=== PATIENT | male | born 1955 | race Caucasian/White ===

== ENCOUNTER 2016-08-16 15:50 | Inpatient (IN) | payer BC ==
[~2016-08-16] VITALS: Ht 188 cm; Wt 98.4 kg
[~2016-08-16 15:50] MED LIST changes: -ASPEC81 PO; -SULI150T PO; -XRL15 PO; -ZCR40 PO
[2016-08-16] MEDS ORDERED: ZCR40 PO ×2 (16:59)
[2016-08-16] MEDS ORDERED: SULI150T PO ×2 (16:59)
[2016-08-16] MEDS ORDERED: ASPEC81 PO ×2 (17:44)
[2016-08-16] MEDS ORDERED: ACETAMINOPHEN 325 MG TAB PO PRN (17:45)
[2016-08-16] MEDS ORDERED: ONDANSETRON INJ 2 MG/ML 2 ML VIAL IV PRN (17:45)
[2016-08-16] MEDS ORDERED: HEPARIN 25000 UNIT/500 ML D5W ONE ×2 (17:59→18:04)
[2016-08-16] MEDS ORDERED: HEPARIN SOD 5000 UNIT/0.5 ML CARP ONE (17:59)
[2016-08-16 19:01] LABS: BASO % 0.4 %; BASO ABS # 0.02 K/uL (0-0.2); COMPLETE YES; EOS % 3.4 %; HEMATOCRIT 40.6 % (42-52); IG% 0.2 %; LYMPH % 21.5 %; MEAN CELL VOLUME 86.8 fL (80-100); MEAN CORPUSCULAR HEMOGLOBIN 29.9 pg (25-34); MEAN CORPUSCULAR HGB CONC 34.5 g/dl (32-36); MONO % 9.2 %; NEUT % 65.3 %; PLATELET COUNT 182 K/uL (130-400); RED BLOOD COUNT 4.68 M/uL (4.7-6.1); WHITE BLOOD COUNT 4.65 K/uL (4.8-10.8)
[2016-08-16 19:07] LABS: PROTHROMBIN TIME (PATIENT) 10.6 SECONDS (9.0-12.0)
[2016-08-16 19:17] LABS: ALB/GLOB RATIO 1.1 (0.9-2); BUN/CREATININE RATIO 16.1 (10-20); CALCIUM 9.2 mg/dl (8.5-10.1); CREATININE 1.1 mg/dl (0.60-1.40); POTASSIUM 4.4 mmol/L (3.5-5.1)
--- NOTE | 2016-08-16 19:52 | EMERGENCY ROOM VISIT NOTE ---
History Report prepared by Ariela: Demar Cook Under the Supervision of: Dr. Fausto Riley M.D. First contact with patient: 16:27 Chief Complaint: LEG PAIN,LEG INJURY Stated Complaint: DVT LEFT LEG- PHYSICIAN REFERRED History of Present Illness The patient is a 61 year old male who presents to the Emergency Room for a deep vein thrombosis in the left leg that was found shortly prior to arrival. The patient was sent to [facility] to have an ultra sound of the left leg. This leg showed a large thrombosis down the left leg. The patient states that he started to notice swelling in his left leg last night which has worsened into today. The patient has no personal or family history of DVTs or clotting disorders. He did make mention that he felt unusually short of breath while running 1.5 weeks ago. He is an avid runner and has run sense without this shortness. 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 He denies LOC, headache, fevers, chills, diaphoresis, visual changes, neck pain, chest pain, breathing difficulties, nausea, vomiting, abdominal pain, back pain, melena, hematochezia, urinary symptoms, numbness, weakness, lymphadenopathy, rash, or other complaints. 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 A total of ten systems were reviewed and were otherwise negative. Past Medical & Surgical Medical Problems: (1) DVT (deep venous thrombosis) (2) Hx of testicular cancer (3) Hyperlipidemia Family History Diabetes mellitus Heart disease Hypertension Social History Smoking Status: Never Smoker Alcohol Use: none Drug Use: none Marital Status: Occupation Status: employed Current/Historical Medications Scheduled Aspirin (Aspirin EC Low Dose), 81 MG PO DAILY Simvastatin (Simvastatin), 40 MG PO QPM Scheduled PRN Sulindac (Clinoril), 150 MG PO BID PRN for Pain Allergies Coded Allergies: Clindamycin (Verified Allergy, Unknown, VIOLENT DIARRHEA, 08/16/16) Azithromycin (Unverified Adverse Reaction, Unknown, PROLONGED PAUSES OF HEART, 08/16/16) Physical Exam Vital Signs Date Time Temp Pulse Resp B/P Pulse Ox O2 Delivery O2 Flow Rate FiO2 08/16/16 16:58 96 Room Air 08/16/16 16:04 36.7 67 18 140/93 96 Room Air Physical Exam GENERAL: Awake, alert, well-appearing, in no distress HENT: Normocephalic, atraumatic. Oropharynx unremarkable. EYES: Normal conjunctiva. Sclera non-icteric. NECK: Supple. No nuchal rigidity. FROM. No JVD. RESPIRATORY: Clear to auscultation. CARDIAC: Regular rate, normal rhythm. Extremities warm and well perfused. Pulses equal. ABDOMEN: Soft, non-distended. No tenderness to palpation. No rebound or guarding. No masses. RECTAL: Deferred. MUSCULOSKELETAL: Chest examination reveals no tenderness. The back is symmetrical on inspection without obvious abnormality. There is no CVA tenderness to palpation. No joint edema. LOWER EXTREMITIES: Calves are equal size bilaterally and non-tender.Left leg is obviously larger than the right. No discoloration. NEURO: Normal sensorium. No sensory or motor deficits noted. SKIN: No rash or jaundice noted. Medical Decision & Procedures Laboratory Results Laboratory results reviewed by me Medications Administered Medications (Trade) Dose Ordered Sig/Mayank Route Start Time Stop Time Status Last Admin Dose Admin Heparin Sodium/ Dextrose 1 ea NOW STAT N/A 08/16/16 16:36 08/16/16 16:38 DC 08/16/16 18:03 1 EA ED Course 1633: The patient was evaluated in room C4. A complete history and physical exam was performed. 1636: Ordered Dextrose 1 tablet PO. 1647: I discussed the case with Dr. Ravi Rodas Hospitalist., he will evaluate the patient for further treatment. Medical Decision Prior records reviewed and summarized above. Triage Nursing notes reviewed and agree them. Additional history obtained from the family. The patient's history was concerning for swelling and pain in the leg. Differential diagnosis: Etiologies such as DVT, joint effusion, infection, trauma, muscular, lymphedema , idiopathic, CHF, as well as others were entertained.. Physical examination: The physical examination revealed no signs of infection. Neurovascularly intact. ER treatment provided: IV heparin On reassessment the patient felt better. Diagnostics interpreted by me: The labs revealed unremarkable cc and chemistry panel hypercoagulability or hers sent. Imaging studies: Ultrasound report from the outpatient side revealed an extensive left leg DVT. Consultation: A consultation was placed with the hospitalist. The case was discussed and diagnostics were reviewed. The patient was evaluated in the ER for further treatment. The chart was completed utilizing [employer] Speech voice recognition software. Grammatical errors, random word insertions, pronoun errors, and incomplete sentences are an occasional consequence of this system due to software limitations, ambient noise, and hardware issues. Any formal questions or concerns about the content, text, or information contained within the body of this dictation should be directly addressed to the physician for clarification. Consults Time Called: 1643 Consulting Physician: Dr. Ravi Rodas Hospitalist Returned Call: 1646 I discussed the case with Dr. Ravi Damon., he will evaluate the patient for further treatment. Impression Primary Impression: DVT (deep venous thrombosis) Scribe Attestation The scribe's documentation has been prepared under my direction and personally reviewed by me in its entirety. I confirm that the note above accurately reflects all work, treatment, procedures, and medical decision making performed by me. Departure Information Dispostion Being Evaluated By Hospitalist Referrals Mary Ruggiero M.D. (PCP) Patient Instructions My [facility] Problem Qualifiers Primary Impression: DVT (deep venous thrombosis) DVT location: lower extremity Laterality: left Chronicity: acute
[2016-08-16] MEDS: SIMVASTATIN 40 MG TAB PO SCH (19:55)
[2016-08-16 20:00] VITALS: BP 127/71; PULSE 68; TEMP 36.7; O2SAT 98; Ht 188 cm; Wt 98.4 kg
--- NOTE | 2016-08-16 20:32 | History and Physical ---
History & Physical Date & Time of Service: August 16, 2016 at 20:17 Chief Complaint: Left Leg Swelling Primary Care Physician: Mary Ruggiero M.D. History of Present Illness 61 year old male who presents to the ER with left leg swelling. Patient reports he noticed the swelling two days ago. He was seen by his PCP who ordered an US that showed an extensive DVT in the left leg. He was referred to the ER for further evaluation. Patient reports he is very active. He runs a few miles a few times per week. He denies any recent travel. No smoking history or family history of blood clots. Patient notes that about a week ago he had both of his knees injected with steroids. He was knelt on both of his knees that evening and then his left knee became very swollen. The next day he reports the swelling was severe that he was unable to bend his knee and was immobile most of the day. Swelling was improved by the following day and patient was actually able to run two days ago. He reports that during his run he noted his calf to have a right feeling. The lower leg swelling started the following day and has been getting worse. He describes his calf as feeling tight but denies any tenderness. No redness. Patient notes some mild shortness of breath while running last week however attributes it to the high amount of pollen. He denies any further shortness of breath or chest pain. Patient reports he otherwise has been feeling well. He denies abdominal pain, nausea, vomiting, or diarrhea. No lightheadedness, dizziness, syncope, unilateral weakness, numbness, tingling, or slurred speech. He denies fever and chills. No urinary symptoms. Outpatient US showed extensive acute left leg DVT with involvement of the distal common femoral, superficial femoral, popliteal veins. Vitals are stable. Hypercoagulable work up has been ordered. Heparin is ordered. Past Medical/Surgical History Medical Problems: (1) Angiolipoma Permanent Comment: s/o removal Status: Chronic (2) Dyslipidemia Status: Chronic (3) Hx of testicular cancer Status: Chronic (4) PFO (patent foramen ovale) Status: Chronic (5) PVC (premature ventricular contraction) Status: Chronic (6) Testicular cancer Status: Chronic Surgical Problems: (1) H/O arthroscopy of left knee Status: Chronic (2) H/O inguinal hernia repair Status: Chronic (3) History of orchiectomy, unilateral Status: Chronic (4) lymph node dissection Status: Chronic Family History negative for clotting disorders Social History Smoking Status: Never Smoker Alcohol Use: 2-3 drinks / day Marital Status: Housing status: lives with family Occupational Status: employed Immunizations History of Tetanus Vaccine?: Yes Tetanus Immunization Date: Jul 11, 2012 Allergies Coded Allergies: Clindamycin (Verified Allergy, Unknown, VIOLENT DIARRHEA, 08/16/16) Azithromycin (Unverified Adverse Reaction, Unknown, PROLONGED PAUSES OF HEART, 08/16/16) Home Medications Scheduled Aspirin (Aspirin EC Low Dose), 81 MG PO DAILY Simvastatin (Simvastatin), 40 MG PO QPM Scheduled PRN Sulindac (Clinoril), 150 MG PO BID PRN for Pain Review of Systems ROS per HPI, all other systems reviewed and negative Physical Exam Vital Signs Date Time Temp Pulse Resp B/P Pulse Ox O2 Delivery O2 Flow Rate FiO2 08/16/16 17:54 60 20 130/77 98 Room Air 08/16/16 16:58 96 Room Air 08/16/16 16:04 36.7 67 18 140/93 96 Room Air General Appearance: no apparent distress Head: normocephalic Eyes: normal inspection ENT: hearing grossly normal Neck: supple, no JVD Respiratory/Chest: lungs clear, normal breath sounds, no respiratory distress Cardiovascular: regular rate, rhythm, normal peripheral pulses, + pertinent finding (+3 edema LLE) Abdomen/GI: normal bowel sounds, non tender, soft Extremities/Musculoskelatal: no calf tenderness, + inflammation (+3 LLE) Neurologic/Psych: no motor/sensory deficits, alert, normal mood/affect, oriented x 3 Skin: normal color, warm/dry Diagnostics Laboratory Results Results Past 24 Hours Test 08/16/16 18:00 Range/Units White Blood Count 4.65 4.8-10.8 K/uL Red Blood Count 4.68 4.7-6.1 M/uL Hemoglobin 14.0 14.0-18.0 g/dL Hematocrit 40.6 42-52 % Mean Corpuscular Volume 86.8 80-100 fL Mean Corpuscular Hemoglobin 29.9 25-34 pg Mean Corpuscular Hemoglobin Concent 34.5 32-36 g/dl Platelet Count 182 130-400 K/uL Mean Platelet Volume 10.0 7.4-10.4 fL Neutrophils (%) (Auto) 65.3 % Lymphocytes (%) (Auto) 21.5 % Monocytes (%) (Auto) 9.2 % Eosinophils (%) (Auto) 3.4 % Basophils (%) (Auto) 0.4 % Neutrophils # (Auto) 3.03 1.4-6.5 K/uL Lymphocytes # (Auto) 1.00 1.2-3.4 K/uL Monocytes # (Auto) 0.43 0.11-0.59 K/uL Eosinophils # (Auto) 0.16 0-0.5 K/uL Basophils # (Auto) 0.02 0-0.2 K/uL RDW Standard Deviation 39.3 36.4-46.3 fL RDW Coefficient of Variation 12.3 11.5-14.5 % Immature Granulocyte % (Auto) 0.2 % Immature Granulocyte # (Auto) 0.01 0.00-0.02 K/uL Prothrombin Time 10.6 9.0-12.0 SECONDS Prothromb Time International Ratio 1.0 0.9-1.1 Activated Partial Thromboplast Time 25.3 21.0-31.0 SECONDS Partial Thromboplastin Ratio 1.0 Sodium Level 142 136-145 mmol/L Potassium Level 4.4 3.5-5.1 mmol/L Chloride Level 108 98-107 mmol/L Carbon Dioxide Level 27 21-32 mmol/L Anion Gap 7.0 3-11 mmol/L Blood Urea Nitrogen 18 7-18 mg/dl Creatinine 1.10 0.60-1.40 mg/dl Est Creatinine Clear Calc Drug Dose 82.0 ml/min Estimated GFR () 83.5 Estimated GFR (Non- 72.1 BUN/Creatinine Ratio 16.1 10-20 Random Glucose 87 70-99 mg/dl Calcium Level 9.2 8.5-10.1 mg/dl Total Bilirubin 0.4 0.2-1 mg/dl Aspartate Amino Transf (AST/SGOT) 22 15-37 U/L Alanine Aminotransferase (ALT/SGPT) 29 12-78 U/L Alkaline Phosphatase 110 45-117 U/L Total Protein 7.5 6.4-8.2 gm/dl Albumin 4.0 3.4-5.0 gm/dl Globulin 3.5 2.5-4.0 gm/dl Albumin/Globulin Ratio 1.1 0.9-2 Folate 10.14 >5.38 ng/mL Diagnostic Radiology LLE DOPPLER IMPRESSION: Extensive acute left leg DVT with involvement of the distal common femoral, superficial femoral, popliteal veins. Impression Assessment and Plan ACUTE LEFT LEG DVT - admit to med/surg - patient presenting with increasing LLE swelling x 2 days, outpatient US showed extensive DVT as noted above - likely unprovoked however patient does report one day of being immobile due to left knee swelling 5 days ago - denies recent travel, non smoker, no family history of clotting disorders - hemodynamically stable - no tachycardia or hypoxia - remote history of testicular cancer ~ 25 years ago s/p treatment, colonoscopy UTD (due next year) - hypercoagulable work up ordered - will start IV heparin with transition to NOAC vs. Coumadin - case management consult placed for NOAC coverage - patient with history of possible PFO noted on echo from 2011 - consider repeat echo or REGINA to further evaluate as this would put patient as his risk of stroke HLD - continue statin DVT PROPHYLAXIS - on Heparin gtt DISPO - In my clinical judgment this beneficiary meets acute admission criteria, established by [facility], that includes being hospitalized through two midnights. Attending Addendum: The patient was seen and examined Swelling and discomfort in the left leg since day before admission Has been working desk longer than usual recently No other provocative factor O/E Hemodynamically stable Left leg is swollen from the knee below Increase in warmth and mildly tender Labs and imaging studies were reviewed Has had a long discussion with the patient regarding the management Agree with the assessment and plan. Dr Angelo Rodrigues VTE Prophylaxis VTE Risk Assessment Done? Y/N: Yes Risk Level: High Given or contraindicated: Other Anticoagulation
[2016-08-16 23:34] VITALS: BP 101/63; PULSE 49; TEMP 36.7; O2SAT 96
[2016-08-17] VITALS: O2SAT 98
[2016-08-17 01:12] LABS: PARTIAL THROMBOPLASTIN RATIO 2.1
[2016-08-17 07:24] LABS: MEAN CELL VOLUME 88.1 fL (80-100); MEAN CORPUSCULAR HEMOGLOBIN 30.2 pg (25-34); MEAN CORPUSCULAR HGB CONC 34.3 g/dl (32-36); MEAN PLATELET VOLUME 9.8 fL (7.4-10.4); PLATELET COUNT 159 K/uL (130-400); RED BLOOD COUNT 4.54 M/uL (4.7-6.1); WHITE BLOOD COUNT 4.25 K/uL (4.8-10.8)
[2016-08-17 07:38] VITALS: BP 106/67; PULSE 53; TEMP 36.7; O2SAT 97
[2016-08-17 07:43] LABS: PARTIAL THROMBOPLASTIN RATIO 2.1
[2016-08-17] MEDS: HEPARIN 25,000 UNIT/500ML D5W 500 ML IV PRN ×3 (08:15→22:50)
--- NOTE | 2016-08-17 12:46 | Progress Note ---
Medicine Progress Note Date & Time of Visit: August 17, 2016 at 12:36. Subjective patient seen resting in bed, comfortable states he feels fine overall has minimal discomfort on the left lower leg- some numbness, tingling on the swollen region denies shortness of breath, palpitations, chest pain no weight loss, loss of appetite, weakness no changes with urination or bowel movement no other symptoms Objective Last 8 Hrs Date Time Temp Pulse Resp B/P Pulse Ox O2 Delivery O2 Flow Rate FiO2 08/17/16 08:00 Room Air 08/17/16 07:38 36.7 53 16 106/67 97 Room Air Physical Exam: General- oriented x 3, not in distress, speaks in sentences with no effort Head- atraumatic Eyes-EOMI, anicteric ENT- oropharynx clear Neck- supple, no JVD, no adenopathy, no thyromegaly no bruits appreciated Lungs- clear breath sounds bilaterally Heart- normal rate, regular rhythm; no murmurs Abdomen- normal bowel sounds, soft, nontender, no masses or hepatosplenomegaly Genital- penis essentially normal right testis: no swelling, masses noted no inguinal lymphadenopathy Extremities- left lower leg: mild edema and warmth, no erythema right lower leg: essentially normal Neuro- alert, oriented x 3; no gross focal deficits Skin- warm & dry Laboratory Results: Last 24 Hours Test 08/16/16 18:00 08/17/16 00:30 08/17/16 07:02 White Blood Count 4.65 K/uL 4.25 K/uL Red Blood Count 4.68 M/uL 4.54 M/uL Hemoglobin 14.0 g/dL 13.7 g/dL Hematocrit 40.6 % 40.0 % Mean Corpuscular Volume 86.8 fL 88.1 fL Mean Corpuscular Hemoglobin 29.9 pg 30.2 pg Mean Corpuscular Hemoglobin Concent 34.5 g/dl 34.3 g/dl Platelet Count 182 K/uL 159 K/uL Mean Platelet Volume 10.0 fL 9.8 fL Neutrophils (%) (Auto) 65.3 % Lymphocytes (%) (Auto) 21.5 % Monocytes (%) (Auto) 9.2 % Eosinophils (%) (Auto) 3.4 % Basophils (%) (Auto) 0.4 % Neutrophils # (Auto) 3.03 K/uL Lymphocytes # (Auto) 1.00 K/uL Monocytes # (Auto) 0.43 K/uL Eosinophils # (Auto) 0.16 K/uL Basophils # (Auto) 0.02 K/uL RDW Standard Deviation 39.3 fL 40.3 fL RDW Coefficient of Variation 12.3 % 12.5 % Immature Granulocyte % (Auto) 0.2 % Immature Granulocyte # (Auto) 0.01 K/uL Prothrombin Time 10.6 SECONDS Prothromb Time International Ratio 1.0 Activated Partial Thromboplast Time 25.3 SECONDS 54.4 SECONDS 54.1 SECONDS Partial Thromboplastin Ratio 1.0 2.1 2.1 Sodium Level 142 mmol/L Potassium Level 4.4 mmol/L Chloride Level 108 mmol/L Carbon Dioxide Level 27 mmol/L Anion Gap 7.0 mmol/L Blood Urea Nitrogen 18 mg/dl Creatinine 1.10 mg/dl Est Creatinine Clear Calc Drug Dose 82.0 ml/min Estimated GFR () 83.5 Estimated GFR (Non- 72.1 BUN/Creatinine Ratio 16.1 Random Glucose 87 mg/dl Calcium Level 9.2 mg/dl Total Bilirubin 0.4 mg/dl Aspartate Amino Transf (AST/SGOT) 22 U/L Alanine Aminotransferase (ALT/SGPT) 29 U/L Alkaline Phosphatase 110 U/L Total Protein 7.5 gm/dl Albumin 4.0 gm/dl Globulin 3.5 gm/dl Albumin/Globulin Ratio 1.1 Folate 10.14 ng/mL Assessment & Plan ACUTE LEFT LEG DVT - no recent surgeries, immobility, travels, family history of VTEs did have bilateral knee injection a week ago, but was not sedentary after does have history of testicular cancer s/p orchiectomy - hypercoagulable work up ordered and pending - hemodynamically stable started on heparin IV, continue heparin for now - given history of testicular CA, may need screening for underlying malignancy as treatment option for this is lovenox than oral anticoagulants will consult Hematology/Oncology HISTORY OF PFO seen on outpatient echo update echo while admitted on Aspirin KNEE ARTHRITIS will have to avoid NSAIDs when on anticoagulation HLD - continue statin DVT PROPHYLAXIS - on Heparin gtt DISPO pending anticipate d/c home when medically stable Current Inpatient Medications: Current Inpatient Medications Medications (Trade) Dose Ordered Sig/Mayank Route Start Time Stop Time Status Last Admin Dose Admin Acetaminophen (Tylenol Tab) 650 mg Q4H PRN PO 08/16/16 17:45 09/15/16 17:44 Ondansetron HCl (Zofran Inj) 4 mg Q6H PRN IV 08/16/16 17:45 09/15/16 17:44 Simvastatin 40 mg 40 mg QPM PO 08/16/16 21:00 09/15/16 20:59 08/16/16 19:55 40 MG Heparin Sodium/ Dextrose (Heparin 25,000 Unit/500ml D5W) 500 ml @ 32 mls/hr [id number] PRN IV 08/16/16 18:45 09/15/16 18:44 08/17/16 08:15 32 MLS/HR
[2016-08-17 15:38] VITALS: BP 112/71; PULSE 66; TEMP 36.6; O2SAT 91
--- NOTE | 2016-08-17 16:55 | ECHOCARDIOGRAM REPORT ---
*NOTICE TO RECEIVING [employer] This information is strictly Confidential and protected under [place] law. [place] law prohibits you from making any further disclosure of this information unless further disclosure is expressly permitted by the written consent of the person to whom it pertains or is authorized by law. A general authorization for the release of medical or other information is not sufficient for this purpose. Hospital accepts no responsibility if the information is made available to any other person, INCLUDING THE PATIENT. Interpretation Summary * Name: MATT LUONG Study Date: 08/17/2016 02:24 PM BP: 106/67 mmHg * Patient Location: [id number]\S\E418\S\1 HR: 53 * : 1955 (M/d/yyyy) Gender: Male Height: 74 in * Age: 61 yrs Ethnicity: CA Weight: 216 lb * Ordering Physician: Derek Snyder * Referring Physician: Mary Ruggiero * Performed By: Janee Mario RDCS * * Reason For Study: POSSIBLE PFO * BSA: 2.2 m2 * The study was technically adequate. * There is no comparison study available. * -- Conclusions -- * Ejection Fraction = 60-65%. * Pulse wave TDI of the anterior and posterior mitral annulas demonstrates normal LV relaxation * There is mild tricuspid regurgitation. * The atrial septum is aneurysmal. * Injection of contrast documented no interatrial shunt. Procedure Details * A complete two-dimensional transthoracic echocardiogram was performed (2D, M-mode, Doppler and color flow Doppler). Left Ventricle * The left ventricle is normal in size. * There is no thrombus. * There is normal left ventricular wall thickness. * Ejection Fraction = 60-65%. * Left ventricular systolic function is normal. * The left ventricular wall motion is normal. Right Ventricle * The right ventricle is normal size. * The right ventricular cavity size is normal (basal dimension <4.2 cm in right ventricular apical 4-chamber view). * The right ventricular systolic function is normal as assessed by tricuspid annular plane systolic excursion (TAPSE) (normal >1.5 cm). Atria * The left atrial size is normal. * Right atrial size is normal. * Injection of contrast documented no interatrial shunt. * The atrial septum is aneurysmal. Mitral Valve * The mitral valve is normal. * There is no mitral valve stenosis. * Significant mitral regurgitation is absent. Tricuspid Valve * The tricuspid valve is normal. * There is no tricuspid stenosis. * There is mild tricuspid regurgitation. Aortic Valve * The aortic valve is trileaflet. * Aortic stenosis is absent. * There is no significant aortic regurgitation. Pulmonic Valve * The pulmonary valve is not well seen, but the Doppler examination is normal without significant regurgitation or stenosis. Great Vessels * The aortic root and proximal ascending aorta are normal sized. Pericardium/Pleural * There is no pericardial effusion. Great Vessels * Normal inferior vena cava diameter and respiratory variation suggests normal central venous pressure. Left Ventricular Diastolic Function * Pulse wave TDI of the anterior and posterior mitral annulas demonstrates normal LV relaxation MMode 2D Measurements and Calculations IVSd 1.5 cm IVSs 2.2 cm LVIDd 4.6 cm LVIDs 3.1 cm LVPWd 1.5 cm LVPWs 1.9 cm IVS/LVPW 1.0 FS 32.4 % EDV(Teich) 94.9 ml ESV(Teich) 37.1 ml EF(Teich) 60.9 % EDV(cubed) 94.2 ml ESV(cubed) 29.0 ml EF(cubed) 69.2 % % IVS thick 43.9 % % LVPW thick 27.9 % LV mass(C)d 289.3 grams LV mass(C)dI 128.8 grams/m\S\2 LV mass(C)s 291.8 grams LV mass(C)sI 129.9 grams/m\S\2 SV(Teich) 57.7 ml SI(Teich) 25.7 ml/m\S\2 SV(cubed) 65.2 ml SI(cubed) 29.0 ml/m\S\2 Ao root diam 3.2 cm Ao root area 7.9 cm\S\2 LA dimension 4.1 cm LA/Ao 1.3 LVAd ap4 35.5 cm\S\2 LVLd ap4 9.7 cm EDV(MOD-sp4) 105.0 ml LVAs ap4 18.4 cm\S\2 LVLs ap4 7.7 cm ESV(MOD-sp4) 39.4 ml EF(MOD-sp4) 62.5 % LVAd ap2 27.7 cm\S\2 LVLd ap2 8.7 cm EDV(MOD-sp2) 80.9 ml LVAs ap2 16.0 cm\S\2 LVLs ap2 7.2 cm ESV(MOD-sp2) 34.7 ml EF(MOD-sp2) 57.1 % SV(MOD-sp4) 65.6 ml SI(MOD-sp4) 29.2 ml/m\S\2 SV(MOD-sp2) 46.2 ml SI(MOD-sp2) 20.6 ml/m\S\2 Doppler Measurements and Calculations MV E max sandra 56.3 cm/sec MV A max sandra 68.4 cm/sec MV E/A 0.82 MV dec time 0.31 sec Ao V2 max 137.7 cm/sec Ao max PG 7.6 mmHg Ao max PG (full) 3.7 mmHg LV V1 max PG 3.9 mmHg LV V1 max 99.0 cm/sec TR max sandra 224.0 cm/sec
[2016-08-17] MEDS: SIMVASTATIN 40 MG TAB PO SCH (20:59)
--- NOTE | 2016-08-17 21:53 | Medical Consult ---
Consultation Date of Consultation: August 17, 2016. 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 He saw his PCP for left leg swelling which he noticed for about 2 days and had a venous doppler which showed acute extensive DVT involving the distal common femoral superficial femoral and popliteal veins and was sent to ER for further management. He denies any recent travel. He denies any family history of thromboembolism or stroke. This is his first event. 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 He said he injured his knee about a week ago. He said he got steroid injections in the knees a week ago but then he had some work to do, so he knelt on his knees for hours and said when he got up the left knee was sore and swollen. He said the knee was severely swollen and was difficult to move and walk so he was immobile for close to 36hrs, only occasionally getting up to use bathroom but otherwise his had to be helped him with everything else and said he was in bed for that time. He said the swelling improved in his knee and he went running 3 days ago and then noticed the left leg was swollen but said he had no pain. He went to his PCP for evaluation and was diagnosed with acute LE DVT He feels well. He denies any fatigue or night sweats or fevers or chills or weight loss or cough or shortness of breath or chest pain or lightheadedness or abdominal pain or swollen glands or pain in testicle or diarrhea or constipation or any bleeding or bruising problems. 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, incomplete RBBB PFO PVCs PAST SURGICAL HISTORY: knee surgery, inguinal hernia repair, colonoscopy, left orchiectomy and LN dissection in 1988 Medical Problems: (1) Hx of testicular cancer Status: Chronic Family History Diabetes mellitus Heart disease Hypertension His father had bladder cancer He denies any family history of any blood disorders or thromboembolism or stroke Social History Smoking Status: Never Smoker Alcohol Use: 2-3 drinks / day Marital Status: Occupation Status: employed Allergies Coded Allergies: Clindamycin (Verified Allergy, Unknown, VIOLENT DIARRHEA, 08/16/16) Azithromycin (Unverified Adverse Reaction, Unknown, PROLONGED PAUSES OF HEART, 08/16/16) Current Inpatient Medications Current Inpatient Medications Medications (Trade) Dose Ordered Sig/Mayank Route Start Time Stop Time Status Last Admin Dose Admin Acetaminophen (Tylenol Tab) 650 mg Q4H PRN PO 08/16/16 17:45 09/15/16 17:44 Ondansetron HCl (Zofran Inj) 4 mg Q6H PRN IV 08/16/16 17:45 09/15/16 17:44 Simvastatin 40 mg 40 mg QPM PO 08/16/16 21:00 09/15/16 20:59 08/17/16 20:59 40 MG Heparin Sodium/ Dextrose (Heparin 25,000 Unit/500ml D5W) 500 ml @ 32 mls/hr [id number] PRN IV 08/16/16 18:45 09/15/16 18:44 08/17/16 09:20 32 MLS/HR Review of Systems Constitutional: No chills, No fatigue, No fever, No sweats, No weakness, No weight loss ENT: No sore throat, No unusual epistaxis Respiratory: No cough, No dyspnea at rest, No dyspnea on exertion, No shortness of breath, No sputum, No wheezing Cardiovascular: + edema (left leg), No chest pain, No palpitations Abdomen: No GI bleeding, No constipation, No diarrhea, No nausea, No pain, No vomiting Musculoskeletal: No joint pain, No muscle pain Genitourinary - Male: No dysuria, No hematuria, No urinary frequency Neurologic: No numbness/tingling, No vertigo, No weakness Psychiatric: No anxiety, No depression symptoms Endocrine: No fatigue Hematologic / Lymphatic: No abnormal bleeding/bruising, No night sweats, No swollen lymph nodes Integumentary: No rash Physical Exam Date Time Temp Pulse Resp B/P Pulse Ox O2 Delivery O2 Flow Rate FiO2 08/17/16 15:50 Room Air 08/17/16 15:38 36.6 66 18 112/71 91 Room Air 08/17/16 08:00 Room Air 08/17/16 07:38 36.7 53 16 106/67 97 Room Air 08/17/16 00:00 98 Room Air 08/16/16 23:34 36.7 49 18 101/63 96 Room Air General Appearance: WD/WN, no apparent distress Head: normocephalic, atraumatic Eyes: sclerae normal, + pertinent finding (No pallor) Neck: supple, no adenopathy, no JVD Respiratory/Chest: lungs clear, normal breath sounds, no respiratory distress Cardiovascular: regular rate, rhythm, no murmur Abdomen/GI: normal bowel sounds, non tender, soft, no organomegaly Back: no CVA tenderness Extremities/Musculoskelatal: no calf tenderness, non-tender, + pedal edema ( left leg) Neurologic/Psych: alert, normal mood/affect, oriented x 3 Skin: normal color, warm/dry, no rash Lymphatic: no adenopathy Laboratory Results Last 24 Hours Test 08/17/16 00:30 08/17/16 07:02 08/17/16 20:35 Activated Partial Thromboplast Time 54.4 SECONDS 54.1 SECONDS Partial Thromboplastin Ratio 2.1 2.1 White Blood Count 4.25 K/uL Red Blood Count 4.54 M/uL Hemoglobin 13.7 g/dL Hematocrit 40.0 % Mean Corpuscular Volume 88.1 fL Mean Corpuscular Hemoglobin 30.2 pg Mean Corpuscular Hemoglobin Concent 34.3 g/dl RDW Standard Deviation 40.3 fL RDW Coefficient of Variation 12.5 % Platelet Count 159 K/uL Mean Platelet Volume 9.8 fL Assessment & Plan 61 year old male with remote history of testicular non-seminoma s/p left orchiectomy and LN dissection after which he achieved complete remission and had approximately 20 year follow up per patient Given the remote history would doubt recurrence of his prior testicular cancer Check LDH, HCG Quant and LDH. He is not having any symptoms at this time except for the left lower extremity swelling from DVT Check CXR. Recommend age and gender appropriate screening with his primary care physician Acute left lower extremity DVT - appears may have been provoked as he reports that he injured his knee kneeling for hours after he had injection into the knee and that he was mostly immobile for close to 36hrs the next day. Also was sitting more recently with grading but was feeling well prior to him kneeling for hours working after his injection,. He is currently on heparin gtt. Recommend transition to oral anticoagulant. I discussed options with the patient. Heparin drip can be switched to lovenox and can overlap with coumadin per protocol for at least 5 days or until therapeutic maintaining INR 2 to 3. IBut he would need to follow up closely with the coumadin clinic and also dietary concerns on coumadin was discussed with him He said he knows 2 other people on coumadin so he is aware of that Alternative would be one of the newer oral anticoagulants such as xarelto or pradaxa or eliquis. He understands that there is no antidote if bleeding should occur on the newer oral anticoagulants, though recently an antidote was approved for pradaxa. He will consider the options and discuss with Dr Snyder. Discussed with Dr Snyder Hypercoagulable workup was done yesterday - results pending Follow up in the office upon discharge
[2016-08-17 23:44] VITALS: BP 106/69; PULSE 52; TEMP 36.6; O2SAT 94
[2016-08-18] MEDS: HEPARIN 25,000 UNIT/500ML D5W 500 ML IV PRN (06:53)
[2016-08-18 06:56] LABS: HEMATOCRIT 40.6 % (42-52); MEAN CELL VOLUME 87.7 fL (80-100); MEAN CORPUSCULAR HEMOGLOBIN 30.2 pg (25-34); MEAN CORPUSCULAR HGB CONC 34.5 g/dl (32-36); MEAN PLATELET VOLUME 9.9 fL (7.4-10.4); PLATELET COUNT 171 K/uL (130-400); RED BLOOD COUNT 4.63 M/uL (4.7-6.1); WHITE BLOOD COUNT 4.21 K/uL (4.8-10.8)
[2016-08-18 07:10] LABS: PARTIAL THROMBOPLASTIN RATIO 2.2
[2016-08-18 07:35] VITALS: BP 108/67; PULSE 55; TEMP 36.5; O2SAT 94
[2016-08-18 08:00] VITALS: O2SAT 94
--- NOTE | 2016-08-18 09:14 | Progress Note ---
Medicine Progress Note Date & Time of Visit: August 18, 2016 at 08:58. Subjective patient seen resting in bed, comfortable states he feels fine overall states left lower leg feels better, less swollen, no pain denies chest pain, dyspnea, palpitations, dizziness, focal neuro symptoms no bleeding no other symptoms states he is ready and would like to be discharged today Objective Last 8 Hrs Date Time Temp Pulse Resp B/P Pulse Ox O2 Delivery O2 Flow Rate FiO2 08/18/16 07:35 36.5 55 18 108/67 94 Room Air Physical Exam: General- oriented x 3, not in distress, speaks in sentences with no effort, no accessory muscle use Eyes-anicteric Neck- no JVD, no adenopathy Lungs- clear breath sounds bilaterally, no rales/wheezes Heart- normal rate, regular rhythm; no murmurs Abdomen- normal bowel sounds, soft, nontender Extremities- left lower leg: very mild edema, no warmth, no erythema right lower leg: essentially normal Neuro- alert, oriented x 3; no gross focal deficits Skin- warm & dry Laboratory Results: Last 24 Hours Test 08/17/16 21:50 08/18/16 06:20 Lactate Dehydrogenase 271 U/L White Blood Count 4.21 K/uL Red Blood Count 4.63 M/uL Hemoglobin 14.0 g/dL Hematocrit 40.6 % Mean Corpuscular Volume 87.7 fL Mean Corpuscular Hemoglobin 30.2 pg Mean Corpuscular Hemoglobin Concent 34.5 g/dl RDW Standard Deviation 40.2 fL RDW Coefficient of Variation 12.4 % Platelet Count 171 K/uL Mean Platelet Volume 9.9 fL Activated Partial Thromboplast Time 57.9 SECONDS Partial Thromboplastin Ratio 2.2 Assessment & Plan ACUTE LEFT LEG DVT - may have been provoked as symptoms started after a knee injection does have history of testicular cancer s/p orchiectomy, in remission - hypercoagulable work up ordered and pending, please follow up - evaluated by Hematology- Dr. Shankar LDH, HCG ordered will need age appropriate cancer screening as outpatient recommend coumadin or NOACs follow up with Dr. Shankar as outpatient for discussion re: duration of therapy - placed on heparin drip - remained hemodynamically stable leg swelling and pain improving - discussed options with patient at length and in detail, including risks and benefits of coumadin and NOACs patient prefers Xarelto - will discharge on Xarelto 15mg bid with food x 3 weeks, then 20mg daily with food after discussed importance of taking medications regularly and not missing doses, caution with activities to avoid injuries patient verbalized understanding and agreement HISTORY OF PFO repeat echo 08/17/16: -- Conclusions -- * Ejection Fraction = 60-65%. * Pulse wave TDI of the anterior and posterior mitral annulas demonstrates normal LV relaxation * There is mild tricuspid regurgitation. * The atrial septum is aneurysmal. * Injection of contrast documented no interatrial shunt. -- Aspirin held as patient will now be on Xarelto, may need to resume once off anticoagulation discussed report with patient consider Cardiology evaluation KNEE ARTHRITIS stop Sulindac for now advised to avoid NSAIDs when on anticoagulation HLD - continue statin DVT PROPHYLAXIS - placed on Heparin gtt DISPO d/c home today ff up with PCP in 1 week ff up with [employer] Dr. Shankar in 2 weeks Current Inpatient Medications: Current Inpatient Medications Medications (Trade) Dose Ordered Sig/Mayank Route Start Time Stop Time Status Last Admin Dose Admin Acetaminophen (Tylenol Tab) 650 mg Q4H PRN PO 08/16/16 17:45 09/15/16 17:44 Ondansetron HCl (Zofran Inj) 4 mg Q6H PRN IV 08/16/16 17:45 09/15/16 17:44 Simvastatin 40 mg 40 mg QPM PO 08/16/16 21:00 09/15/16 20:59 08/17/16 20:59 40 MG Heparin Sodium/ Dextrose (Heparin 25,000 Unit/500ml D5W) 500 ml @ 32 mls/hr [id number] PRN IV 08/16/16 18:45 09/15/16 18:44 08/18/16 06:53 32 MLS/HR
[2016-08-18] MEDS ORDERED: XRL15 PO ×2 (09:21)
--- NOTE | 2016-08-18 09:27 | Discharge Instructions ---
Discharge Instructions Date of Service August 18, 2016. Admission Reason for Admission: DVT Discharge Discharge Diagnosis / Problem: ACUTE DEEP VENOUS THROMBOSIS, LEFT LEG Discharge Goals Goal(s): Diagnostic testing, Therapeutic intervention Activity Recommendations Activity Limitations: as noted below (NO HEAVY EXERTION UNTIL RE-EVALUATED BY PRIMARY CARE PHYSICIAN) Lifting Limitations: until after follow-up appointment Exercise/Sports Limitations: until after follow-up appointment AVOID MANIPULATING THE LEFT LEG . Instructions / Follow-Up Instructions / Follow-Up PLEASE REVIEW YOUR NEW MEDICATION LIST AND FOLLOW INSTRUCTIONS CAREFULLY. YOU WILL TAKE XARELTO 15MG TWICE A DAY FOR 3 WEEKS, THEN 20MG DAILY. ALWAYS TALK TO YOUR PRIMARY CARE PHYSICIAN PRIOR TO STARTING ANY MEDICATION. CALL PRIMARY CARE PHYSICIAN OR RETURN TO ER IMMEDIATELY IF WITH ANY SIGNS OF BLEEDING, HEAD TRAUMA. FOLLOW UP WITH DR. EPSTEIN ON SUNDAY AUGUST 21, 2016 AT 9:25AM. FOLLOW UP WITH [employer] DR. AVNI PORTILLO IN 1-2 WEEKS. TEL NO. Current Hospital Diet Patient's current hospital diet: Regular Diet Discharge Diet Recommended Diet: Regular Diet Procedures Procedures Performed: LEFT LEG ULTRASOUND, ECHOCARDIOGRAM Pending Studies Studies pending at discharge: no Medical Emergencies . Who to Call and When: Medical Emergencies: If at any time you feel your situation is an emergency, please call 911 immediately. . Non-Emergent Contact Non-Emergency issues call your: Primary Care Provider Call Non-Emergent contact if: you have a fever, your pain is not controlled, your pain is worsening, you have any medication questions . Past History Medical & Surgical History: (1) Testicular cancer (2) PVC (premature ventricular contraction) (3) Dyslipidemia (4) Angiolipoma (5) History of orchiectomy, unilateral (6) H/O arthroscopy of left knee (7) H/O inguinal hernia repair (8) lymph node dissection . "Provider Documentation" section prepared by Derek Snyder. . VTE Core Measure Inpt VTE Proph given/why not?: Unfractionated heparin SQ
[2016-08-18] MEDS ORDERED: RIVAROXABAN TAB 15 MG TAB PO ONE (09:30)
--- NOTE | 2016-08-18 09:31 | Discharge Instructions ---
Discharge Instructions Date of Service August 18, 2016. Admission Reason for Admission: DVT Discharge Discharge Diagnosis / Problem: (1) Acute deep vein thrombosis (DVT) VTE Date & Time Date of VTE Diagnosis: August 18, 2016 Time of VTE Diagnosis: 03:06 Discharge Goals Goal(s): Diagnostic testing, Therapeutic intervention Activity Recommendations Activity Limitations: as noted below (NO HEAVY EXERTION UNIL RE EVALUATED BY PRIMARY CARE PHYSICIAN) Lifting Limitations: until after follow-up appointment Exercise/Sports Limitations: until after follow-up appointment . Instructions / Follow-Up Instructions / Follow-Up PLEASE REVIEW YOUR NEW MEDICATION LIST AND FOLLOW INSTRUCTIONS CAREFULLY. YOU WILL TAKE XARELTO 15MG TWICE A DAY FOR 3 WEEKS, THEN 20MG DAILY. ALWAYS TALK TO YOUR PRIMARY CARE PHYSICIAN PRIOR TO STARTING ANY MEDICATION. CALL PRIMARY CARE PHYSICIAN OR RETURN TO ER IMMEDIATELY IF WITH ANY SIGNS OF BLEEDING, HEAD TRAUMA. FOLLOW UP WITH DR. EPSTEIN ON SUNDAY AUGUST 21, 2016 AT 9:25AM. FOLLOW UP WITH SP[employer] DR. AVNI PORTILLO IN 1-2 WEEKS. TEL NO. Medication Instructions: Your condition is typically treated with an anticoagulant. Anticoagulants will thin your blood to help prevent new clots. * You should take her medication exactly as directed. * Never skip a dose. * Never take a double dose. If you miss a dose, take it as soon as you remember. Call your Primary Care doctor if you experience any of the following: * Swelling or Pain in your leg * Sudden, continuous pain deep in a muscle * Pain that worsens when you are active or when you stand still for a long time * Chest Pain * Sudden Shortness of Breath * Rapid or pounding heart beat * Fainting * Dizziness * Cough with blood or bloody sputum * Sweating more than normal * Bruises * Heavy or uncontrolled bleeding * Blood in your urine, stool or vomit * Black or tarry stools Caring for Your Self at Home: * Avoid sitting, standing or lying down for long periods without moving your legs and feet * When traveling by car, stop to get out and move around at least once every 3 hours * On long airplane, train or bus rides, get up and move around when possible * If you can't get up, wiggle your toes and tighten your calves to keep your blood moving Follow Up: It is important for you to keep your follow up appointments with your medical provider. Current Hospital Diet Patient's current hospital diet: Regular Diet Discharge Diet Recommended Diet: Regular Diet Procedures Procedures Performed: LEFT LEG ULTRASOUND, ECHOCARDIOGRAM Pending Studies Studies pending at discharge: no Medical Emergencies . Who to Call and When: Medical Emergencies: If at any time you feel your situation is an emergency, please call 911 immediately. . Non-Emergent Contact Non-Emergency issues call your: Primary Care Provider Call Non-Emergent contact if: you have a fever, your pain is not controlled, your pain is worsening, you have any medication questions . Past History Medical & Surgical History: (1) Acute deep vein thrombosis (DVT) (2) Testicular cancer (3) PVC (premature ventricular contraction) (4) Dyslipidemia (5) Angiolipoma (6) Atrial septal aneurysm (7) History of orchiectomy, unilateral (8) H/O arthroscopy of left knee (9) H/O inguinal hernia repair (10) lymph node dissection . "Provider Documentation" section prepared by Derek Snyder. . VTE Core Measure Inpt VTE Proph given/why not?: Unfractionated heparin SQ
--- NOTE | 2016-08-18 09:37 | Discharge Summary ---
Discharge Summary Date of Service August 18, 2016. Discharge Summary Admission Date: August 16, 2016 at 17:38 Discharge Date: August 18, 2016 Discharge Disposition: Home Principal Diagnosis: ACUTE LEFT LEG DVT Secondary Diagnoses/Problems: ANEURYSMAL ATRIAL SEPTUM Procedures: ULTRASOUND LEFT VENOUS DOPP LOWER EXT UNILAT CLINICAL HISTORY: Left leg pain COMPARISON STUDY: No previous studies for comparison. FINDINGS: There is acute thrombus within the common femoral, superficial femoral, and popliteal vein. Incidental note is made of a popliteal cyst measuring 37 x 15 x 31 mm. IMPRESSION: Extensive acute left leg DVT with involvement of the distal common femoral, superficial femoral, popliteal veins. Electronically signed by: Kev Rolle M.D. 08/16/2016 3:08 PM 2D ECHOCARDIOGRAM Interpretation Summary * Name: MATT LUONG Study Date: 08/17/2016 02:24 PM BP: 106/67 mmHg * Patient Location: [id number] HR: 53 * : 1955 (M/d/yyyy) Gender: Male Height: 74 in * Age: 61 yrs Ethnicity: [place] Weight: 216 lb * Ordering Physician: Derek Snyder * Referring Physician: Mary Ruggiero * Performed By: Janee Mario RDCS * * Reason For Study: POSSIBLE PFO * BSA: 2.2 m2 * The study was technically adequate. * There is no comparison study available. * -- Conclusions -- * Ejection Fraction = 60-65%. * Pulse wave TDI of the anterior and posterior mitral annulas demonstrates normal LV relaxation * There is mild tricuspid regurgitation. * The atrial septum is aneurysmal. * Injection of contrast documented no interatrial shunt. Procedure Details * A complete two-dimensional transthoracic echocardiogram was performed (2D, M-mode, Doppler and color flow Doppler). Left Ventricle * The left ventricle is normal in size. * There is no thrombus. * There is normal left ventricular wall thickness. * Ejection Fraction = 60-65%. * Left ventricular systolic function is normal. * The left ventricular wall motion is normal. Right Ventricle * The right ventricle is normal size. * The right ventricular cavity size is normal (basal dimension <4.2 cm in right ventricular apical 4-chamber view). * The right ventricular systolic function is normal as assessed by tricuspid annular plane systolic excursion (TAPSE) (normal >1.5 cm). Atria * The left atrial size is normal. * Right atrial size is normal. * Injection of contrast documented no interatrial shunt. * The atrial septum is aneurysmal. Mitral Valve * The mitral valve is normal. * There is no mitral valve stenosis. * Significant mitral regurgitation is absent. Tricuspid Valve * The tricuspid valve is normal. * There is no tricuspid stenosis. * There is mild tricuspid regurgitation. Aortic Valve * The aortic valve is trileaflet. * Aortic stenosis is absent. * There is no significant aortic regurgitation. Pulmonic Valve * The pulmonary valve is not well seen, but the Doppler examination is normal without significant regurgitation or stenosis. Great Vessels * The aortic root and proximal ascending aorta are normal sized. Pericardium/Pleural * There is no pericardial effusion. Great Vessels * Normal inferior vena cava diameter and respiratory variation suggests normal central venous pressure. Left Ventricular Diastolic Function * Pulse wave TDI of the anterior and posterior mitral annulas demonstrates normal LV relaxation Consultations: [employer] Dr. Shankar Pending Studies/Follow-Up: Will need to transition to Xarelto 20mg daily after two weeks; Cardiology referral for Atria Septum Aneurysm; May need to resume Aspirin when off anticoagulation; Please refer to hospital course below for further details. Medication Reconciliation New Medications: Rivaroxaban (Xarelto) 15 Mg Tab 15 MG PO BID for 21 Days, #42 TAB 0 Refills with food Continued Medications: Simvastatin (Simvastatin) 40 Mg Tab 40 MG PO QPM Discontinued Medications: Aspirin (Aspirin EC Low Dose) 81 Mg Ectab 81 MG PO DAILY Sulindac (Clinoril) 150 Mg Tab 150 MG PO BID PRN for Pain Admission Information HPI (per Admitting provider): 61 year old male who presents to the ER with left leg swelling. Patient reports he noticed the swelling two days ago. He was seen by his PCP who ordered an US that showed an extensive DVT in the left leg. He was referred to the ER for further evaluation. Patient reports he is very active. He runs a few miles a few times per week. He denies any recent travel. No smoking history or family history of blood clots. Patient notes that about a week ago he had both of his knees injected with steroids. He was knelt on both of his knees that evening and then his left knee became very swollen. The next day he reports the swelling was severe that he was unable to bend his knee and was immobile most of the day. Swelling was improved by the following day and patient was actually able to run two days ago. He reports that during his run he noted his calf to have a right feeling. The lower leg swelling started the following day and has been getting worse. He describes his calf as feeling tight but denies any tenderness. No redness. Patient notes some mild shortness of breath while running last week however attributes it to the high amount of pollen. He denies any further shortness of breath or chest pain. Patient reports he otherwise has been feeling well. He denies abdominal pain, nausea, vomiting, or diarrhea. No lightheadedness, dizziness, syncope, unilateral weakness, numbness, tingling, or slurred speech. He denies fever and chills. No urinary symptoms. Outpatient US showed extensive acute left leg DVT with involvement of the distal common femoral, superficial femoral, popliteal veins. Vitals are stable. Hypercoagulable work up has been ordered. Heparin is ordered. Physical Exam (per Admitting): General Appearance: no apparent distress Head: normocephalic Eyes: normal inspection ENT: hearing grossly normal Neck: supple, no JVD Respiratory/Chest: lungs clear, normal breath sounds, no respiratory distress Cardiovascular: regular rate, rhythm, normal peripheral pulses, + pertinent finding (+3 edema LLE) Abdomen/GI: normal bowel sounds, non tender, soft Extremities/Musculoskelatal: no calf tenderness, + inflammation (+3 LLE) Neurologic/Psych: no motor/sensory deficits, alert, normal mood/affect, oriented x 3 Skin: normal color, warm/dry Hospital Course ACUTE LEFT LEG DEEP VENOUS THROMBOSIS - may have been provoked as symptoms started after a knee injection does have history of testicular cancer s/p orchiectomy, in remission - Left leg US: Extensive acute left leg DVT with involvement of the distal common femoral, superficial femoral, popliteal veins. - evaluated by Hematology- Dr. Shankar hypercoagulable work up ordered and pending, please follow up LDH, HCG ordered will need age appropriate cancer screening as outpatient recommend coumadin or NOACs follow up with Dr. Shankar as outpatient for discussion re: duration of therapy - placed on heparin drip - remained hemodynamically stable leg swelling and pain improving - discussed options with patient at length and in detail, including risks and benefits of coumadin and NOACs patient prefers Xarelto - will discharge on Xarelto 15mg bid with food x 3 weeks, then 20mg daily with food after discussed importance of taking medications regularly and not missing doses, caution with activities to avoid injuries [facility] and agreement ATRIAL SEPTUM ANEURYSM repeat echo 08/17/16: -- Conclusions -- * Ejection Fraction = 60-65%. * Pulse wave TDI of the anterior and posterior mitral annulas demonstrates normal LV relaxation * There is mild tricuspid regurgitation. * The atrial septum is aneurysmal. * Injection of contrast documented no interatrial shunt. -- Aspirin held as patient will now be on Xarelto, may need to resume once off anticoagulation discussed report with patient consider Cardiology evaluation KNEE ARTHRITIS stop Sulindac for now advised to avoid NSAIDs when on anticoagulation HLD - continue statin DVT PROPHYLAXIS - placed on Heparin gtt DISPO d/c home today ff up with PCP in 1 week ff up with [employer] Dr. Shankar in 2 weeks discussed medical condition and plan of care with patient in detail he is comfortable and agreeable with plan of care all questions answered Total time spent on discharge = 55 MINUTES This includes examination of the patient, discharge planning, medication reconciliation, and communication with other providers. Discharge Instructions Discharge Instructions Date of Service August 18, 2016. Admission Reason for Admission: DVT Discharge Discharge Diagnosis / Problem: (1) Acute deep vein thrombosis (DVT) VTE Date & Time Date of VTE Diagnosis: August 18, 2016 Time of VTE Diagnosis: 03:06 Discharge Goals Goal(s): Diagnostic testing, Therapeutic intervention Activity Recommendations Activity Limitations: as noted below (NO HEAVY EXERTION UNIL RE EVALUATED BY PRIMARY CARE PHYSICIAN) Lifting Limitations: until after follow-up appointment Exercise/Sports Limitations: until after follow-up appointment . Instructions / Follow-Up Instructions / Follow-Up PLEASE REVIEW YOUR NEW MEDICATION LIST AND FOLLOW INSTRUCTIONS CAREFULLY. YOU WILL TAKE XARELTO 15MG TWICE A DAY FOR 3 WEEKS, THEN 20MG DAILY. ALWAYS TALK TO YOUR PRIMARY CARE PHYSICIAN PRIOR TO STARTING ANY MEDICATION. CALL PRIMARY CARE PHYSICIAN OR RETURN TO ER IMMEDIATELY IF WITH ANY SIGNS OF BLEEDING, HEAD TRAUMA. FOLLOW UP WITH DR. RUGGIERO ON SUNDAY AUGUST 21, 2016 AT 9:25AM. FOLLOW UP WITH PHOTO OFFSET PRINTER DR. AVNI SHANKAR IN 1-2 WEEKS. TEL NO. [phone] Medication Instructions: Your condition is typically treated with an anticoagulant. Anticoagulants will thin your blood to help prevent new clots. * You should take her medication exactly as directed. * Never skip a dose. * Never take a double dose. If you miss a dose, take it as soon as you remember. Call your Primary Care doctor if you experience any of the following: * Swelling or Pain in your leg * Sudden, continuous pain deep in a muscle * Pain that worsens when you are active or when you stand still for a long time * Chest Pain * Sudden Shortness of Breath * Rapid or pounding heart beat * Fainting * Dizziness * Cough with blood or bloody sputum * Sweating more than normal * Bruises * Heavy or uncontrolled bleeding * Blood in your urine, stool or vomit * Black or tarry stools Caring for Your Self at Home: * Avoid sitting, standing or lying down for long periods without moving your legs and feet * When traveling by car, stop to get out and move around at least once every 3 hours * On long airplane, train or bus rides, get up and move around when possible * If you can't get up, wiggle your toes and tighten your calves to keep your blood moving Follow Up: It is important for you to keep your follow up appointments with your medical provider. Current Hospital Diet Patient's current hospital diet: Regular Diet Discharge Diet Recommended Diet: Regular Diet Procedures Procedures Performed: LEFT LEG ULTRASOUND, ECHOCARDIOGRAM Pending Studies Studies pending at discharge: no Medical Emergencies . Who to Call and When: Medical Emergencies: If at any time you feel your situation is an emergency, please call 911 immediately. . Non-Emergent Contact Non-Emergency issues call your: Primary Care Provider Call Non-Emergent contact if: you have a fever, your pain is not controlled, your pain is worsening, you have any medication questions . Past History Medical & Surgical History: (1) Acute deep vein thrombosis (DVT) (2) Testicular cancer (3) PVC (premature ventricular contraction) (4) Dyslipidemia (5) Angiolipoma (6) Atrial septal aneurysm (7) History of orchiectomy, unilateral (8) H/O arthroscopy of left knee (9) H/O inguinal hernia repair (10) lymph node dissection . "Provider Documentation" section prepared by Derek Snyder. . VTE Core Measure Inpt VTE Proph given/why not?: Unfractionated heparin SQ
--- NOTE | 2016-08-18 10:35 | DIAGNOSTIC IMAGING REPORT ---
CHEST 2 VIEWS ROUTINE HISTORY: acute dvt, history of testicular cancer COMPARISON: Chest 09/24/2013. FINDINGS: The lungs are clear. Cardiac silhouette is normal in size. No pleural effusions. No pneumothorax. IMPRESSION: No acute process. Electronically signed by: Jesus Alcaraz M.D. 08/18/2016 10:34 AM Dictated Date/Time: 08/18/2016 10:33 AM
[2016-08-18 11:08] VITALS: BP 108/67; PULSE 55; TEMP 36.5; O2SAT 94
[2016-08-18] MEDS ORDERED: RIVAROXABAN TAB 15 MG TAB PO SCH (20:00)
[2016-08-20 13:31] LABS: AFP TUMOR MARKER SERUM 7.7 NG/ML (<6.1)
[2016-08-21 05:38] LABS: DRVVT MIX INTERPRETAION Not Indicated; LAC PTT SCREEN 37 sec (<=40); PROTEIN C ACTIVITY** TC 1777X 131 % (70-180); PROTEIN S ACT(FUNCT)**1779X 89 % (70-150)
[2016-08-21 06:30] LABS: ANTITHROMBINIII ACTIVITY** 107 % activity (80-120); B2 GLYCOPROTEIN IGA <9 SAU (<=20); B2 GLYCOPROTEIN IGG <9 SGU (<=20); B2 GLYCOPROTEIN IGM 26 SMU (<=20)
== END 2016-08-18 12:15 | disposition home or self-care (01) | DRG 300 ==
LOC: ENRESERVDT → ENRESERVTM → C.EDB 15:51 → C.4E 17:38
PROVIDERS: ADMIT Internal Medicine; ATTEND Family Medicine
DX: I82.412 Acute embolism and thrombosis of left femoral vein (principal); I25.3 Aneurysm of heart; I82.432 Acute embolism and thrombosis of left popliteal vein; M17.10 Unilateral primary osteoarthritis, unspecified knee; E78.5 Hyperlipidemia, unspecified; Z87.74 Personal history of (corrected) congenital malformations of heart and circulatory system; Z85.46 Personal history of malignant neoplasm of prostate; Z79.82 Long term (current) use of aspirin; Z79.899 Other long term (current) drug therapy; M25.462 Effusion, left knee

== ENCOUNTER → 2016-08-16 | Outpatient (CLI) | payer BC ==
[~2016-08-16] MED LIST: ASPCH81X PO; ASPEC81 PO; SIMV20TA2 PO; SULI150T PO; XRL15 PO; ZCR40 PO; [UNRECOGNIZED DRUG - CODE] TD
--- NOTE | 2016-08-16 15:09 | DIAGNOSTIC IMAGING REPORT ---
ULTRASOUND LEFT VENOUS DOPP LOWER EXT UNILAT CLINICAL HISTORY: Left leg pain COMPARISON STUDY: No previous studies for comparison. FINDINGS: There is acute thrombus within the common femoral, superficial femoral, and popliteal vein. Incidental note is made of a popliteal cyst measuring 37 x 15 x 31 mm. IMPRESSION: Extensive acute left leg DVT with involvement of the distal common femoral, superficial femoral, popliteal veins. Electronically signed by: Kev Rolle M.D. 08/16/2016 3:08 PM Dictated Date/Time: 08/16/2016 3:06 PM
== END | disposition home or self-care (01) ==
LOC: C.ULTRBC 14:32
PROVIDERS: ATTEND Internal Medicine
DX: M25.462 Effusion, left knee (principal); I82.412 Acute embolism and thrombosis of left femoral vein; I82.432 Acute embolism and thrombosis of left popliteal vein